=== PATIENT | male | born 1955 | race Caucasian/White ===

== ENCOUNTER 2016-06-04 10:43 | Inpatient (IN) | payer MEDICARE, MEDICAID ==
[~2016-06-04] VITALS: Ht 172.7 cm; Wt 67.1 kg
--- NOTE | ~2016-06-04 | ECH ---
Transthoracic Echocardiography Report (TTE) Demographics Patient Name MABEL DEL ROSARIO Date of Study 06/04/2016 Patient Number [id number] Visit Number [id number] Date of 1955 Room Number 421 Accession Number [id number] Gender Male Age 61 year(s) Referring Crystal Dempsey International Project Manager [facility] Physician Physician Interpreting Antonia Castillo MD Health Claims Examiner Physician Supervising Ordering Physician Crystal Dempsey MD, MD/MLP Nurse Stress Roller Inspector Conclusions Summary Technically adequate exam. The estimated left ventricular ejection fraction is 25-30%. Diastolic assessment reveals Grade I diastolic dysfunction. No significant valvular abnormalities. Procedure Type of Study TTE procedure:Echo Complete SF. Procedure Date Date: 06/04/2016 Start: 02:56 PM Technical Quality: Adequate visualization Indications:Tachycardia, Hypertension and Coronary artery disease. Additional Indications:History of PA/ETOH abuse Appropriate Use Criteria: 9 Height: 68 inches Weight: 143 pounds BSA: 1.77 m Rhythm: Sinus tachycardia HR: 108 bpm BP: 144/94 mmHg M-Mode/2D Measurements LV Diastolic Dimension: 5.42 cm LV Systolic Dimension: 4.77 cm LV Septum Diastolic: 0.72 cm LV PW Diastolic: 0.73 cm AO Root Dimension: 3.4 cm Cardiac Output: 6 l/min LA Dimension: 2.65 cm Cardiac Index: 3.39 l/min*m RV Diastolic Dimension: 3.23 cm LA volume index: 23 ml/m LVOT: 2.09 cm LVOT VTI: 16.2 cm RV Base: 3.1 cm LV Stroke volume: 55.55 ml RV Mid: 2 cm LV Stroke volume index: 31.38 ml/m TAPSE: 2.1 cm TDI-S': 15 cm/s Doppler Measurements AV Peak Velocity: 1.2 m/s MV Peak E-Wave: 0.53 m/s AV Peak Gradient: 5.76 mmHg MV Peak A-Wave: 1.05 m/s AV Mean Gradient: 3.29 mmHg MV E/A Ratio: 0.5 LVOT Peak Velocity: 1.07 m/s MV P1/2t: 28.4 msec AV Area (Continuity):2.9 cm MV Deceleration Time: 97.8 msec MV Area (PHT): 7.75 cm PV Peak Velocity: 0.94 m/s E' Septal Velocity: 0.09 m/s PV Peak Gradient: 3.56 mmHg E' Lateral Velocity: 0.08 m/s A' Septal Velocity: 0.11 m/s A' Lateral Velocity: 0.15 m/s RA Area: 11.31 cm Findings Left Ventricle The left ventricle is normal in size . Diastolic assessment reveals Grade I diastolic dysfunction. Right Ventricle Normal right ventricle structure and function. Left Atrium Normal left atrial size. Right Atrium Normal right atrial size. Mitral Valve Normal mitral valve structure and function. Trivial mitral regurgitation by color Doppler. Aortic Valve The aortic valve was not well imaged. Tricuspid Valve Normal tricuspid valve structure and function. Trivial tricuspid regurgitation by color Doppler. Insufficient jet to calculate pulmonary pressures. Pulmonic Valve The pulmonic valve is not well visualized. Pericardial Effusion No evidence of pericardial effusion. Miscellaneous Visualized portions of the aortic root and ascending aorta appear normal in size. Pleural Effusion No evidence of pleural effusion. Signature
--- NOTE | ~2016-06-04 | OR ---
ADMIT: 06/04/2016 RM/LOC: 421 [facility] MR#: [id number] [address] [address] MABEL DEL ROSARIO [address] [place] [address] Operative/Delivery Room Report SEX: M AGE: 61 : 1955 SURGERY DATE: 06/06/2016 SURGEON: Mabel Hale MD PREOPERATIVE DIAGNOSES: 1. Melenic stools. 2. Anemia. POSTOPERATIVE DIAGNOSES: Evidence of some gastritis. No evidence of varices, ulcers, or sites of active bleeding within the esophagus, stomach, or duodenum. PROCEDURE: EGD with biopsies of the gastric antrum, rule out H. pylori. ANESTHESIA: MAC anesthesia. ESTIMATED BLOOD LOSS: Less than 5 mL. INDICATION FOR PROCEDURE: Please see H and P. After the risks, benefits, possible complications, and the alternatives have been explained, an informed consent had been obtained, the patient was taken back to the procedure room, underwent sedation. The flexible EGD scope was introduced, slowly maneuvered down the esophagus. You can see in picture 1, no signs of really any esophageal varices. Maneuvered through the stomach. The gastric antrum and pylorus seen in picture #4 and there is some evidence of gastritis, but I do not see any ulcers, no masses, no sites of bleeding. Maneuvered through here into the duodenum. The duodenal bulb, seen in the second picture and the second portion as seen in picture 3. I did come back and biopsied the antrum, there were no ulcers or lesions within the duodenum. After biopsying the antrum, the scope was slowly withdrawn. The remainder of the stomach was inspected, no signs of other lesions, gastric varices, or anything of that nature. The scope was slowly withdrawn and removed out of the esophagus and the procedure was terminated. Tolerated it well, was taken to recovery room in stable and satisfactory condition. Mabel Hale MD/ jim JOB #: [id number] CC: Tariq Rojas, Attending Physician Tariq Rojas, Family Physician
--- NOTE | ~2016-06-04 | HP ---
ADMIT: 06/04/2016 RM/LOC: 421 [facility] MR#: [id number] [address] [address] MABEL DEL ROSARIO [address] [place] [address] History and Physical SEX: M AGE: 61 : 1955 DATE OF SERVICE: CHIEF COMPLAINT: Shortness of breath. HISTORY OF PRESENT ILLNESS: This is a 61-year-old gentleman with history of severe COPD, coronary artery disease, presented to clinic with increased shortness of breath. This has been going on for many weeks and ultimately getting worse. He is on chronic oxygen. He is having a hard time even lying down because of this. His shortness of breath has been so bad. He has been coughing up some thick phlegm. He thinks his oxygen gets low at times. He is still little bit weak and feverish. He has also been drinking a little more heavily than usual and so he has trouble getting up sometimes. Apparently, he is drinking anywhere from 4 ounces to one quart of vodka per day. History of alcoholism was sober for a few years prior to this. Does feel lightheaded when he coughs and has pain as well. PAST MEDICAL HISTORY: 1. Hypertension. 2. Hyperlipidemia. 3. COPD. 4. History of a seizure due to alcohol withdrawal. 5. Alcoholism. 6. History of tobacco abuse, none currently. 7. Coronary artery disease. 8. History of an [place]. 9. He had an inferior STEMI with stent thrombosis in 2008 after he stopped his Aspirin and Plavix. He had PCI to his distal RCA in 2005 prior to that. Last EF is 40% to 45%. 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 Lives in [place]. He is . He quit smoking about nine years ago. Currently, drinking as above. FAMILY HISTORY: Heart disease in his uncle and father. His grandfather had a stroke. REVIEW OF SYSTEMS: He has been fatigued. He has had weight loss. Overall, does not feel well. Otherwise, completely reviewed and negative except as above. PHYSICAL EXAMINATION: VITAL SIGNS: Temperature 97.8, pulse 118, respirations 18, blood pressure 144/94, oxygen saturation 93% on 1 L oxygen by nasal cannula. GENERAL: This is an ill-appearing, 61-year-old gentleman. He appears weak in no apparent distress though. HEENT: Head is normocephalic and atraumatic. Pupils equal, round, and reactive to light and accommodation. Extraocular muscles are intact. Throat is clear, but a little bit poor dentition. NECK: Supple. Trachea midline. Thyroid not palpable. HEART: Tachycardic. ADMIT: 06/04/2016 RM/LOC: 421 [facility] MR#: [id number] [facility] [address] [address] MABEL DEL ROSARIO [address] [place] [address] History and Physical SEX: M AGE: 61 : 1955 LUNGS: Severely diminished bilaterally with some increased crackles with inspiration and end-expiratory wheezing bilaterally. ABDOMEN: Mildly protuberant, but soft without any tenderness. EXTREMITIES: Lower extremities have no edema. Moves all extremities equally bilaterally. He is tremulous and has evidence of muscle wasting. He is also very weak diffusely. LABORATORY AND X-RAY DATA: Still pending. ASSESSMENT: 1. Shortness of breath. 2. Chronic obstructive pulmonary disease with exacerbation. 3. Possible pneumonia. 4. Tachycardia. 5. Anxiety. 6. Depression. 7. Weakness. 8. Current alcohol abuse. 9. Coronary artery disease. PLAN: He is admitted to the hospital. We gave him IV antibiotics and IV steroids. I will monitor for cardiac cause for his shortness of breath. alcohol withdrawal protocol and will follow him closely. We will get an echo for evaluation of his heart as well. Tariq Rojas MD/ jim JOB #: [id number] CC: Tariq Rojas MD, Attending Physician Tariq Rojas MD, Family Physician
--- NOTE | 2016-06-06 12:53 | CO ---
ADMIT: 06/04/2016 RM/LOC: 421 [facility] MR#: [id number] 2620 [facility] [address] [place] [phone] MIGUEL ÁNGELJULESEN Nicko [address] [place] [address] Consultation SEX: M AGE: 61 : 1955 DATE OF CONSULTATION: 06/06/2016 ATTENDING PHYSICIAN: Tariq Rojas CONSULTING PHYSICIAN: Ruben Hale MD REASON FOR CONSULTATION: Upper GI bleed. HISTORY OF PRESENT ILLNESS: Jarrod is a very pleasant, 61-year-old male, who has been admitted for chronic cough that is going on the last 6-8 weeks. He has also noticed dark stools going on for about one week. His cough has been productive at sometimes, but there was no blood noted. He has been nauseous and had one time emesis, but denies any hematemesis. His stools have been dark and loose, but up until today he has had diarrhea. He denies any bright red blood per rectum. The patient takes clopidogrel and has taken some ibuprofen but that was about 3-4 days ago. He further denies taking any blood thinning medications. He denies any prior EGDs and his last colonoscopy was about 10 years ago which he believes was fine. He does have a positive history for alcoholism where he drinks anywhere from 4 ounces to a whole quart of hard alcohol a day. His who is present during my assessment believes that he is reporting under his normal intake. PAST MEDICAL HISTORY: Significant for hypertension, COPD, osteoarthritis, hyperlipidemia, and coronary artery disease. PAST SURGICAL HISTORY: Please see HPI. He has also had a couple orthopedic surgeries such as his shoulder and ankle surgery. ALLERGIES: SULFA AND PROPOXYPHENE. MEDICATIONS: Well documented in chart. FAMILY HISTORY: Father had polyps, but apparently they were benign. SOCIAL HISTORY: Positive for alcoholism. He also uses tobacco and chews. REVIEW OF SYSTEMS: LUNGS: Whenever the patient has a coughing fit, he gets very short of breath and feels like he is going to faint. Again, he denies any hemoptysis or productive cough. The rest of a comprehensive 10-point review of systems was performed and all other systems are negative. PHYSICAL EXAMINATION: GENERAL: The patient in no acute distress. He is alert and oriented. HEENT: Head is normocephalic and atraumatic. EOMS are intact. Conjunctivae free of icterus, erythema, pallor. Pinnae free of deformities. Nose, midline. No tracheal deviation. NECK: Supple. SKIN: Negative for jaundice, clubbing, edema, pallor, or cyanosis. LUNGS: Normal respiratory effort. ADMIT: 06/04/2016 RM/LOC: 421 [facility] MR#: [id number] [address] [place] [phone] RUBEN DEL ROSARIO [address] [place] [address] Consultation SEX: M AGE: 61 : 1955 HEART: Distal pulses intact. Regular rate and rhythm. ABDOMEN: Soft, nondistended. Positive epigastric tenderness. NEURO: Grossly intact. LABORATORY DATA: Hemoglobin 8.6. ASSESSMENT: Anemia, upper gastrointestinal bleed. PLAN: The plan is to have the patient undergo EGD today. I discussed the risks, alternatives, benefits, and complications of the procedure to which he has agreement of this plan, had all his questions answered, and would like to proceed. We will get him set up for EGD and we will hopefully go today provided by Dr. Hale. Thank you for the consultation on this patient. HUY Garber / Ruben Hale MD / jim JOB #: [id number] CC: Tariq Rojas, Attending Physician Tariq Rojas, Family Physician
--- NOTE | 2016-06-24 06:57 | DS ---
ADMIT: 06/04/2016 RM/LOC: 421 [facility] MR#: [id number] [address] [address] MABEL DEL ROSARIO [address] [place] [address] General Discharge Summary SEX: M AGE: 61 : 1955 ADMISSION DATE: 06/04/2016 DISCHARGE DATE: 06/08/2016 FINAL DIAGNOSES: 1. Shortness of breath. 2. Cough. 3. Chronic obstructive pulmonary disease with exacerbation. 4. Acute on chronic systolic congestive heart failure. New ejection fraction decreased to 25%. 5. 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 6. Alcohol abuse with withdrawal. 7. Coronary artery disease. REASON FOR ADMISSION: See dictated H and P, but briefly, this is a 61-year- old gentleman with heart disease and lung disease, presented with increased cough and shortness of breath and weakness. He was admitted for this because of his severe weakness. See H and P for further details. HOSPITAL COURSE: He was admitted and placed on IV steroids, IV antibiotics and monitored for signs of cardiac dysfunction. Echo showed a reduction of his ejection fraction from 45% down to 25%. Cardiology was consulted for this. [place] this may be toxic related to the oxygen use. He refused [facility]. The patient was weaned off benzodiazepines slowly as well as steroids were weaned down. He had a drop in his hemoglobin with possible gastritis, so we set up for an EGD, which just showed gastritis, no severe bleeding. He also had been taking a lot of ibuprofen. After that, patient seemed to do okay. He gradually improved, was still very weak, but on the , the patient was doing okay, was planned to be working toward discharge in a day or two. Ultimately, he decided to just up and leave the hospital because he "had things to do," so he was to maintain on his same home medications and hopefully was going to do okay. Tariq Rojas MD/ jim JOB #: [id number] CC: Tariq Rojas MD, Attending Physician Tariq Rojas MD, Family Physician
--- NOTE | 2016-07-01 15:04 | CO ---
ADMIT: 06/04/2016 RM/LOC: 421 [facility] MR#: [id number] [address] [address] MABEL DEL ROSARIO [address] [place] [address] Consultation SEX: M AGE: 61 : 1955 DATE OF CONSULTATION: 06/05/2016 ATTENDING PHYSICIAN: Tariq Rojas CONSULTING PHYSICIAN: Madiha Knight MD REASON FOR CONSULTATION: Shortness of breath, decreased ejection fraction. HISTORY OF PRESENT ILLNESS: The patient is a pleasant 61-year-old, male, known to [facility]. He has a history of coronary artery disease, status post PCI to his distal RCA in 2005, and then also a stent to his obtuse marginal too in 2005 along with a stent to his distal RCA in 2007. In 2008, he presented with an inferior STEMI secondary to stent thrombosis due to the patient's stopping aspirin and Plavix. Medical therapy was resumed with aspirin and Plavix. His EF was about 40% to 45% at that time. He last followed up with us in March of 2015. At that time, he was doing well. Unfortunately, since then, he has started drinking again and is drinking anywhere from 4 ounces to a quart of vodka a day. He does have a history of alcoholism and was sober for about 8 or 9 years prior to that. He has not started smoking again however. He states that he has been taking his medications, but does admit to missing doses frequently. He has been having increased shortness of breath with exertion along with some chest pressure with exertion, which relieves when he rests. He also has noticed some coughing at night. He does not sleep well at night. The cough is productive of a brown, green, yellow, clear sputum, but no hemoptysis. He states he has had a slight fever off and on. He has had constant chills. He has had some abdominal swelling, but no lower extremity edema. He states he has lost about 10 to 12 pounds. He has chest pain with his cough and some presyncope. PAST MEDICAL HISTORY: 1. Positive for hypertension. 2. Hyperlipidemia. 3. COPD. 4. Osteoarthritis. 5. Seizure due to ETOH withdrawal. 6. History of alcoholism. 7. History of tobacco use. 8. Coronary artery disease. SOCIAL HISTORY: He is disabled from farming. He lives in [facility]. He is . He used to smoke, he quit 8 to 9 years ago. Does have history of alcoholism, he was sober for 8-9 years, and now has been drinking again for the last 6 to 12 months. FAMILY HISTORY: He does have a family history of heart disease in his dad, had an RI. His uncle had an RI, and his grandfather had a stroke. ADMIT: 06/04/2016 RM/LOC: 421 [facility] MR#: [id number] [address] [place] [phone] MABEL DEL ROSARIO [facility] [address] [place] [address] Consultation SEX: M AGE: 61 : 1955 REVIEW OF SYSTEMS: GENERAL: Denies fatigue, sweats, rash. He has had some chills, and has had some slight fevers. He has had a weight loss of about 10 to 12 pounds. EYES: Denies double vision, blurred vision, cataracts, or glaucoma. ENT: Denies hearing loss or problems with nose, mouth or throat. PULMONARY: Denies asthma, emphysema or bronchitis. Denies snoring loudly, wakefulness at night, or fatigue upon awakening. He has had a cough, production of sputum. He does have COPD, oxygen dependent at night. GASTROINTESTINAL: Denies heartburn or difficulty swallowing. No change in bowel habits. Denies dark or bloody stools. No history of ulcers, hiatal hernia, or gallbladder or liver disease. GENITOURINARY: Denies dysuria, hematuria, nocturia, urinary tract infection. Denies history of renal insufficiency or failure. He has a history of kidney stone. MUSCULOSKELETAL: Denies history of gout. Denies muscle or joint pains. He has history of osteoarthritis. ENDOCRINE: Denies history of thyroid dysfunction or diabetes. HEMATOLOGIC: Denies history of anemia, easy bruising, or cancer. NEUROLOGIC: Denies chronic headaches, dizziness, syncope, stroke, or numbness or tingling. He has had a seizure due to EtOH withdrawal. PSYCHIATRIC: Denies history of mental illness or feelings of depression. PHYSICAL EXAMINATION: Per Dr. Knight; VITAL SIGNS: Temp 97.2, pulse 105, respirations 14, blood pressure 120/85, O2 saturation 94%. SKIN: [place], warm and dry. EYES: Sclerae clear. No xanthelasmas. ENT: Oral mucosa is pink and moist. No jugular venous distention or carotid bruits. CHEST: Respirations are even and unlabored. Lungs are clear to auscultation. HEART: Regular rate and rhythm. Normal S1, S2. No murmurs, rubs or gallops. ABDOMEN: Soft and nontender. MUSCULOSKELETAL: Gait is normal. EXTREMITIES: Peripheral pulses palpable. No clubbing, cyanosis or edema. PSYCHIATRIC: Alert and oriented. Mood and affect are appropriate. DIAGNOSTICS: Echocardiogram was repeated and revealed an ejection fraction lower than before at 25% to 30%. Blood cultures are negative. Sodium of 139, potassium 3.5, with a chloride of 101, carbon dioxide 24, BUN of 5, glucose 145, creatinine 0.4, calcium 7.6, magnesium of 1.4, GFR 131. White blood count of 4.9, red blood count of 3.66, hemoglobin 9.6, hematocrit 31.9, with a platelet count of 349. Respiratory panel is negative. Procalcitonin is 0.17. Lactic acid is 1.3. INR is 1.13 with a PT of 11.8. Drug screen is positive for benzodiazepine. Alcohol level was 18. UA is positive for 2+ protein, 4+ ketones, high bilirubin, urobilinogen of 4.0, red blood cells of 3, mucus of few. Chest x-ray was negative for any acute cardiopulmonary process. ASSESSMENT: Per Dr. Knight. ADMIT: 06/04/2016 RM/LOC: 421 [facility] MR#: [id number] [address] [address] MABEL DEL ROSARIO [facility] Danny [address] [place] [address] Consultation SEX: M AGE: 61 : 1955 1. Acute on chronic systolic heart failure. 2. Coronary artery disease, status post multiple stents in the past along with an inferior ST Segment Elevation Myocardial Infarction due to noncompliance. 3. ETOH abuse. 4. Cough. 5. Hypertension. 6. Hyperlipidemia. PLAN: Per Dr. Knight; Mr. Del Rosario does seem euvolemic. I question medication compliance at home. I suspect his increase ETOH made his ejection fraction worse, however, we cannot rule out worsening coronary artery disease. Therefore, he will need ischemic evaluation with either a diagnostic heart catheterization versus a stress test. We will continue to monitor his symptoms and diagnostics amend our plan accordingly. Thank you for allowing us to participate in the care of this patient. HUY Fenton / Naomie. Jonathan Knight MD / jim JOB #: [id number] CC: Tariq Rojas, Attending Physician Tariq Rojas, Family Physician
--- NOTE | 2016-07-02 13:25 | CO ---
ADMIT: 06/04/2016 RM/LOC: 421 [facility] MR#: [id number] [address] [address] RUBEN DEL ROSARIO [address] [place] [address] Consultation Report SEX: M AGE: 61 : 1955 DATE OF CONSULTATION: 06/06/2016 ATTENDING PHYSICIAN: Tariq Rojas CONSULTING PHYSICIAN: Ruben Hale MD ADDENDUM: You can see full dictated consult by Sy Madrigal. The patient is a 61-year-old male who has been having dark stools, nausea, started to have some diarrhea that he states has been dark but no hematemesis that he notes. No known bright red blood. He does take Plavix for heart stents. Then he had been taking a fair amount of ibuprofen, it sounded like. Never had an upper scope. I think his last colonoscopy was 10 years ago or more. He has a history of drinking significant amount of alcohol. The plan is at this time is to proceed with an EGD which I have discussed with him, nothing else significant or different. He has been seen and examined by myself as well. I explained the procedure to him. Risks, benefits, possible complications, and alternatives. He understands and wishes to proceed. Ruben Hale MD/ jim JOB #: [id number] CC: Tariq Rojas, Attending Physician Tariq Rojas, Family Physician
== END 2016-06-08 14:50 | disposition left against medical advice (07) | DRG 190 ==
LOC: 4PCU 10:43
PROVIDERS: ADMIT Internal Medicine
PROC: HZ2ZZZZ Detoxification Services for Substance Abuse Treatment (ICD-10-PCS; 2016-06-04)
PROC: 0DB68ZX Excision of Stomach, Via Natural or Artificial Opening Endoscopic, Diagnostic (ICD-10-PCS; principal; 2016-06-06)
DX: J44.0 Chronic obstructive pulmonary disease with (acute) lower respiratory infection (principal); I50.23 Acute on chronic systolic (congestive) heart failure; I42.8 Other cardiomyopathies; Z99.81 Dependence on supplemental oxygen; K29.71 Gastritis, unspecified, with bleeding; E83.42 Hypomagnesemia; F10.239 Alcohol dependence with withdrawal, unspecified; J20.9 Acute bronchitis, unspecified; I11.0 Hypertensive heart disease with heart failure; J44.1 Chronic obstructive pulmonary disease with (acute) exacerbation; I25.10 Atherosclerotic heart disease of native coronary artery without angina pectoris; E87.6 Hypokalemia; I25.2 Old myocardial infarction; D64.9 Anemia, unspecified; F17.220 Nicotine dependence, chewing tobacco, uncomplicated; E78.5 Hyperlipidemia, unspecified; M19.90 Unspecified osteoarthritis, unspecified site; Z82.49 Family history of ischemic heart disease and other diseases of the circulatory system; Z95.5 Presence of coronary angioplasty implant and graft

== ENCOUNTER 2016-11-06 14:28 | Emergency (ER) | payer MEDICARE ==
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
== END 2016-11-06 20:00 | disposition home or self-care (01) ==
LOC: ER 14:28
DX: F10.229 Alcohol dependence with intoxication, unspecified (principal); F10.239 Alcohol dependence with withdrawal, unspecified; S50.312A Abrasion of left elbow, initial encounter; I10 Essential (primary) hypertension; I25.2 Old myocardial infarction; G40.909 Epilepsy, unspecified, not intractable, without status epilepticus; Z88.8 Allergy status to other drugs, medicaments and biological substances; Z87.891 Personal history of nicotine dependence; Y04.0XXA Assault by unarmed brawl or fight, initial encounter